=== PATIENT | male | born 1995 | race Caucasian/White ===

== ENCOUNTER 2021-05-21 17:18 | Emergency (ER) | payer MEDICAID, SELFPAY ==
[2021-05-21 17:27] VITALS: BP 136/64; PULSE 85; RESP 16; TEMP 38.1; O2SAT 100
[2021-05-21 17:39] VITALS: BP 136/64; PULSE 85; RESP 16; TEMP 38.1; O2SAT 100
--- NOTE | 2021-05-21 17:43 | ECG_ITS ---
Measurements Intervals [place] Rate: 70 P: 75 GA: 143 QRS: 74 QRSD: 96 T: 61 QT: 363 QTc: 392 Interpretive Statements SINUS RHYTHM WITH SINUS ARRHYTHMIA BASELINE ARTIFACT- I, II, III, AVR, AVL, AVF NORMAL ECG Electronically Signed On 05-22-2021 8:06:21 [employer] by Richi Bernal D.O.
--- NOTE | 2021-05-21 18:04 | ED.CHESTPAIN ---
HPI - Chest Pain General Chief Complaint: Anxiety Stated Complaint: Chest Pain Time Seen by Provider: 05/21/21 17:40 Source: patient and RN notes reviewed Mode of arrival: ambulatory Limitations: no limitations History of Present Illness HPI narrative: Patient presents today complaining of left sternal chest discomfort intermittently over the past 3 days. Pain increases with movement or deep breaths as well as when his anxiety is increased. Denies radiation of the pain. Denies cough, sore throat, fever, shortness of breath, nausea or vomiting, abdominal pain, numbness or tingling, dizziness or lightheadedness. He does report some congestion and rhinorrhea recently. He currently rates his pain 5/10. States he took 1 dose of amoxicillin that a friend gave him. Smokes half pack per day and also smokes marijuana frequently. No cardiac history. States this is the first health care provider he has seen in 6 years. MD complaint: chest pain Related Data Home Medications Medication Instructions Recorded Confirmed No Home Medications 05/21/21 05/21/21 Allergies Allergy/AdvReac Type Severity Reaction Status Date / Time Sulfa (Sulfonamide AdvReac Hives Verified 05/21/21 17:39 Antibiotics) Review of Systems Review of Systems: CONSTITUTIONAL: Denies body aches, fever, chills, or sweats. EYES: Denies visual changes, redness, or discharge. ENT: Denies rhinorrhea, congestion, sore throat, or otalgia. CARDIOVASCULAR: Denies palpitations, or edema.+ Chest discomfort RESPIRATORY: Denies cough or dyspnea. GASTROINTESTINAL: Denies abdominal pain, nausea, vomiting, or diarrhea. GENITOURINARY: Denies dysuria or hematuria. SKIN: Denies rash, itching, or wounds. MUSCULOSKELETAL: Denies back pain, joint pain, or myalgia. NEUROLOGIC: Denies headache, numbness, tingling, or weakness. PSYCH: Denies depression or anxiety. [facility] Social History Social History (Updated 05/21/21 @ 19:01 by Yesica Garcia, [facility], ) Smoking packs per day: 0.5 Smoking cigarettes per day: 10.0 Substance use type: marijuana Comments At time of signature, I have reviewed and agree with nursing past medical, surgical, social and family history unless otherwise noted. Please see nursing chart for further information. There is no relevant family history pertinent to the presenting complaint Exam Narrative: GENERAL: Well-appearing, well-nourished, and in no acute distress. HEAD: Normocephalic, atraumatic. EYES: EOMI. No redness or drainage. Conjunctivae normal. ENT: Mucous membranes pink and moist. Nares clear. No rhinorrhea. TMs normal bilaterally. Throat normal. Uvula midline. NECK: Normal AROM. Supple. No lymphadenopathy. CHEST: No respiratory distress. Clear to auscultation. Mild tenderness to the left sternal border. HEART: Regular rate and rhythm. No murmur appreciated. Normal peripheral pulses. EXTREMITIES: Normal range of motion. No edema. SKIN: Warm, dry, no rash. Capillary refill normal. Normal skin turgor. NEURO: No focal deficits. Alert and oriented x3. Gait steady. PSYCH: Normal affect. No signs of depression or anxiety. Course Course Level of Care: Express Care Visit Vital Signs Vital signs: Vital Signs Temperature 100.5 F H 05/21/21 17:27 Pulse Rate 85 05/21/21 17:27 Respiratory Rate 16 05/21/21 17:27 Blood Pressure 136/64 05/21/21 17:27 Pulse Oximetry 100 05/21/21 17:27 Temperature 100.5 F H 05/21/21 17:39 Pulse Rate 85 05/21/21 17:39 Respiratory Rate 16 05/21/21 17:39 Blood Pressure 136/64 05/21/21 17:39 Pulse Oximetry 100 05/21/21 17:39 Reviewed. Pt has been instructed to follow up with his PCP regarding his elevated blood pressure today. MDM - Chest Pain ECG Data EKG #1: ECG completion date: 05/21/21 ECG completion time: 17:42 Prior ECG tracings: not available for review Interpretation: Sinus rhythm with sinus arrhythmia. Heart rate 70. [place]
== END 2021-05-21 18:15 | disposition home or self-care (01) ==
PROVIDERS: Emergency Provider Nurse Practitioner
DX: R07.89 Other chest pain (principal); F17.210 Nicotine dependence, cigarettes, uncomplicated; F12.90 Cannabis use, unspecified, uncomplicated
CPT/HCPCS: 93005; 99213; G0463